=== PATIENT | female | born 1950 | race Caucasian/White ===

== ENCOUNTER 2016-03-27 20:50 | Inpatient (IN) | payer BC, OTHER ==
[~2016-03-27] VITALS: Ht 175.3 cm; Wt 80.7 kg
--- NOTE | ~2016-03-27 | D ---
[facility] [place] [address] DISCHARGE SUMMARY Name: SARAH BETH MELSISA Room #: 203-P [facility] IN M.R.#: [id number] Admission: 03/27/16 Attend Phys: Oskar Payne MD, Discharge: 03/29/16 Date of : 52 Report #: [id number] THIS REPORT FOR: //name// CC: Oskar Palacio MD DICTATED BY: Angelika ORTEGA HISTORY OF PRESENT ILLNESS: A very pleasant 65-year-old woman who was admitted with symptomatic atrial fibrillation. She had rates of 150s to 160s and IV diltiazem was initiated and she converted to sinus rhythm. She has since maintained sinus rhythm. She was monitored on the telemetry floor and had no recurrence of atrial fibrillation and will be discharged home in stable condition. Echocardiogram showed preserved LV function, without any wall motion abnormality, no significant valvular disease and no evidence of pulmonary hypertension. Thyroid studies are currently pending. Otherwise, laboratory data was unremarkable. She will be discharged to home in stable condition. DISCHARGE DIAGNOSES: 1. Paroxysmal atrial fibrillation, converted to sinus rhythm. 2. Osteoarthritis, maintained on low-dosed anti-inflammatory. DISCHARGE MEDICATIONS: She will maintain her home vitamin supplementation. She will initiate Toprol-XL 50 mg daily. She will take an extra p.r.n. break-through atrial fibrillation. She will take enteric-coated aspirin 325 mg daily. DISCHARGE INSTRUCTIONS: Maintain heart-healthy diet, activity as tolerated. She will return to the office in 2-3 weeks for a routine stress echocardiogram. She will notify the office with any questions or concerns. We will follow up with her thyroid studies at her routine followup visit and as mentioned, she will notify the office with any recurrent atrial dysrhythmias. Thank you for allowing us to participate in the care of this pleasant woman. <ELECTRONICALLY SIGNED> By: Oskar Payne MD, FACC 04/01/16 0936 0840 0931 Oskar Payne MD, FACC /nt
--- NOTE | ~2016-03-27 | H ---
[facility] [place] [address] HISTORY AND PHYSICAL Name: SARAH BETH MELISSA Room #: 203-P [facility] IN M.R.#: [id number] Admission: 03/27/16 Attend Phys: Oskar Payne MD, Discharge: 03/29/16 Date of : 52 Report #: [id number] THIS REPORT FOR: //name// CC: Oskar Palacio MD DATE OF SERVICE: 03/28/2016 HISTORY OF PRESENT ILLNESS: A 65-year-old female patient of Dr. Deyanira Palacio admitted to the emergency room with AFib and rapid ventricular response. The patient is a pleasant and active and young 65-year old. She states she may have had this occurred last summer for the first time, but has never been total she had AFib, never been treated for AFib. This occurred after having dinner last night. The EKG had the heart rate in the 150-160 range with nonspecific changes. She has spontaneously converted with IV Cardizem. She is in sinus rhythm. She feels well this morning. She was lightheaded with this but not syncopal. Her only medications were meloxicam, which she has not taken for 3 days. She does not have a history of hypertension or hypercholesterolemia. By age and being female, she would have a MARA score of 2. Denies chest pain or anginal complaints. Minimal alcohol intake and no tobacco. She does not have much in the way of any past medical history. She has no known drug allergies. PAST MEDICAL HISTORY: Positive only for a left knee replacement here a few months ago and some dehydration last summer. Palpitations, which are minimal. ALLERGIES: No known drug allergies. 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 Social alcohol. No tobacco. FAMILY HISTORY: Father did have premature coronary disease, but he was a smoker in his 60s, from heart failure. REVIEW OF SYSTEMS: Essentially negative except for stated above, this intermittent knee pain. PHYSICAL EXAMINATION: VITAL SIGNS: Currently, pulse is 60s-70s and regular and blood pressure 100/60. HEENT: Eyes reveal xanthelasmas. Pharynx is clear. NECK: Shows preserved upstrokes without JVD or bruits. LUNGS: Clear. CARDIAC: Regular rate and rhythm. S1 and S2, without murmur or gallop. ABDOMEN: Soft. No HSM or abdominal bruit. EXTREMITIES: Reveal no edema. Distal pulses were intact. [facility] [address] [place] [address] HISTORY AND PHYSICAL Name: SARAH BETH MELISSA Room #: [address] [place] [address] [place] [facility].#: [id number] Admission: 03/27/16 Attend Phys: Oskar Payne MD, Discharge: 03/29/16 Date of : 52 Report #: [id number] NEUROLOGICAL: Nonfocal. SKIN: Warm and dry without xanthoma or ulcer. MUSCULOSKELETAL: No gross joint deformity. ASSESSMENT: 1. Atrial fibrillation, rapid ventricular response. 2. History of knee replacement. RECOMMENDATIONS AND PLAN: Obtain echo Doppler. P.o. beta dewayne. We will give one shot of IV Lovenox. With no recurrence, I am not inclined to go on any long-term anticoagulation at this time, but we will need further outpatient evaluation. Structurally normal heart, we will add 50 mg of Toprol. I will have more to say at the discharge. I will wean off for Cardizem drip 50 p.o. Toprol, echo and try to send her home later today. <ELECTRONICALLY SIGNED> By: Oskar Payne MD, FACC 04/01/16 0936 0753 1839 Oskar Payne MD, FACC /nt
--- NOTE | ~2016-03-27 | 2DMMODE ---
[facility] [employer] [address] 2 D/M-MODE ECHOCARDIOGRAM Name: SHINSARAH BETH Room #: 203-P [facility] IN .R.#: [id number] Admission: 03/27/16 Attend Phys: Oskar Payne, Discharge: Date of : 52 Date of Service: 03/28/16911 Report #: [id number] THIS REPORT FOR: //name// Transthoracic Echocardiography Ordering physician: Jazzy Allen Referring physician: Deyanira Palacio Brianna Manager Qa: Azra Bailey RDCS Indications/History: Atrial fibrillation. BP: 86 / 52 HR: 62bpm Height: 69in Weight: 176.6lb Study data: M-mode, complete 2D, complete spectral Doppler, and color Doppler. Location: Bedside. [employer]. Image quality was good. 2D measurements Normal Normal LVID ED 49.2mm 36-57 IVS ED 11.2mm 6-11 LVID ES 31.2mm 23-40 LVPW ED 10.5mm 6-11 LA volume 30ml/m2 16-28 AoRoot diam 27.4mm 21-37 index ED LVOT diameter 20mm 18-23 Findings: Left ventricle: The cavity size was normal. Wall thickness was normal. Systolic function was normal. Wall motion was normal. Right ventricle: The cavity size was normal. Systolic function was normal. Right atrium: The atrium was mildly dilated. Left atrium: The atrium was normal in size. Volume index: 30ml/m2 (S). Aortic valve: Structurally normal valve. Doppler: There was no stenosis. No regurgitation. Peak velocity: 144.5cm/s (S). Mitral valve: Structurally normal valve. Doppler: There was no evidence for stenosis. Trivial regurgitation. Peak E-wave velocity: 76.1cm/s. Peak [facility] [address] [place] [address] 2 D/M-MODE ECHOCARDIOGRAM Name: SARAH BETH MELISSA Room #: 027-P [facility] IN [place]#: [id number] Admission: 03/27/16 Attend Phys: Oskar Payne, Discharge: Date of : 52 Date of Service: 03/28/16911 Report #: [id number] gradient: 2.3mm Hg (D). Peak A-wave velocity: 55.1cm/s. Tricuspid valve: Structurally normal valve. Doppler: There was no evidence for stenosis. Trivial regurgitation. Regurgitant peak velocity: 220cm/s. Peak RV-RA gradient: 19mm Hg (S). Pulmonic valve: Structurally normal valve. Doppler: There was no evidence for stenosis. No regurgitation. Pericardium: There was no pericardial effusion. Aorta: Aortic root: The aortic root was normal in size. Pulmonary artery: Systolic pressure was estimated to be 29mm Hg. Diastolic function: Normal diastolic function. Systemic veins: Inferior vena cava: The vessel was normal in size; the respirophasic diameter changes were blunted (< 50%). Conclusions 1. Left ventricle: Systolic function was normal. Wall motion was normal. 2. Left atrium: The atrium was normal in size. 3. Aortic valve: No regurgitation. 4. Tricuspid valve: Trivial regurgitation. 5. Pericardium, extracardiac: There was no pericardial effusion. 6. Pulmonary arteries: Systolic pressure was estimated to be 29mm Hg. <ELECTRONICALLY SIGNED> By: Oskar Payne MD, [facility] 03/28/16 2252 2252 Oskar Payne MD, FACC /hammad
--- NOTE | ~2016-03-27 | EKG ---
[place] [address] [place] [address] ELECTROCARDIOGRAM REPORT Name: SARAH BETH MELISSA Room #: 203-[facility] IN M.R.#: [id number] Admission: 03/27/16 Attend Phys: Oskar Payne MD, Discharge: 03/29/16 Date of : 52 Report #: [id number] THIS REPORT FOR: //name// [facility] ED Test Date: 2016-03-27 Test Time: 20:53:55 Pat Name: SARAH BETH MELISSA Department: Room: [facility] Gender: F Fast Food Server: HARINI : 1950 Requested By: Trini Downing Order Number: [id number] MD: Dell Bhatti Measurements Intervals [place] Rate: 148 P: SC: QRS: 76 QRSD: 91 T: 263 QT: 263 QTc: 413 Interpretive Statements Atrial fibrillation with rapid V-rate Repolarization abnormality, prob rate related Baseline wander in lead(s) V3 No previous ECG available for comparison Electronically Signed On 03-29-2016 14:11:20 HEALTH CARE ADMINISTRATOR by Dell Bhatti [email or web address] <ELECTRONICALLY SIGNED> By: Dell Bhatti MD, [facility] 03/29/16 1411 52 52 Dell Bhatti MD, [facility] /EPI
--- NOTE | ~2016-03-27 | EKG ---
[facility] [address] [place] [address] ELECTROCARDIOGRAM REPORT Name: SARAH BETH MELISSA Room #: 203-P [facility] IN M.R.#: [id number] Admission: 03/27/16 Attend Phys: Oskar Payne MD, Discharge: 03/29/16 Date of : 52 Report #: [id number] THIS REPORT FOR: //name// [facility] Test Date: 2016-03-28 Test Time: 07:56:49 Pat Name: SARAH BETH MELISSA Department: Room: [facility] Gender: F Commander Internal Affairs: TAM : 1950 Requested By: Trini Downing Order Number: [id number] MD: Dell Bhatti Measurements Intervals [place] Rate: 64 P: 72 UT: 144 QRS: 76 QRSD: 100 T: 88 QT: 463 QTc: 478 Interpretive Statements Sinus rhythm Abnrm T, consider ischemia, anterolateral lds No previous ECG available for comparison Electronically Signed On 03-29-2016 14:15:49 RETAIL SUPERVISOR by Dell Bhatti [email or web address] <ELECTRONICALLY SIGNED> By: Dell Bhatti MD, [facility] 03/29/16 1415 0756 0756 Dell Bhatti MD, [facility] /EPI
[~2016-03-27 20:50] MED LIST: MACROBID 100 M100 M2 PO; NORCO 5-325 TA1 EACH PO
[2016-03-27 20:52] VITALS: BP 188/104
[2016-03-27] MEDS ORDERED: MOBIC15 MG PO (20:55)
[2016-03-27 21:24] LABS: ABSOLUTE NEUTROPHILS 7.5 thou/uL (1.4-8.2); BASOPHILS 0.8 % (0.0-2.0); EOSINOPHILS 1.9 % (0.0-3.0); HEMATOCRIT 42.4 % (37.0-47.0); HEMOGLOBIN 14.6 gm/dL (12.0-15.0); MCH 31.1 pg (26.0-34.0); MCHC 34.4 % (28.0-37.0); MCV 90.3 fL (80.0-100.0); MONOCYTES 9.4 % (1.0-8.0); PLATELET COUNT 283 thou/uL (150-400); POLYS 70.9 % (36.0-66.0); RDW 12.3 % (10.5-14.5); WBC 10.6 thou/uL (4.0-11.0)
[2016-03-27 21:26] LABS: MANUAL DIFF NO
[2016-03-27 21:29] LABS: ANION GAP 12 mmol/L (7-16); BUN 8 mg/dL (7-18); CALCIUM 9.7 mg/dL (8.5-10.1); CHLORIDE 101 mmol/L (98-107); CO2 28 mmol/L (21-32); CREATININE 0.8 mg/dL (0.6-1.3); GLUCOSE 117 mg/dL (70-99); POTASSIUM 3.2 mmol/L (3.5-5.1); SODIUM 141 mmol/L (136-145)
[2016-03-27 21:38] LABS: MAGNESIUM 1.8 mg/dL (1.8-2.4); TROPONIN-I < 0.04 ng/mL (<0.04-0.07)
[2016-03-28] VITALS (7 sets, daily range): BP systolic 86–147; BP diastolic 52–82
[2016-03-28 00:13] LABS: APTT 25.2 Seconds (24.5-32.8); PROTIME 10.5 Seconds (9.3-11.4)
[2016-03-28] MEDS ORDERED: VITAMIN D2000 UNIT PO (02:16)
[2016-03-28] MEDS ORDERED: CALCIUM 600 +1 EAC1 PO (02:16)
[2016-03-28] MEDS ORDERED: CENTURY TABLET1 EACH PO (02:17)
[2016-03-28] MEDS ORDERED: VITAMINC500 PO (02:18)
[2016-03-28] MEDS ORDERED: TYLENOL325 MG PO (02:20)
[2016-03-29 04:18] VITALS: BP 118/71
[2016-03-29 07:15] VITALS: BP 118/71
[2016-03-29 07:50] VITALS: BP 128/82
[2016-03-29] MEDS ORDERED: TOPROL XL100 MG PO (09:38)
[2016-03-29] MEDS ORDERED: ASA5UEC PO (09:40)
== END 2016-03-29 10:09 | disposition home or self-care (01) | DRG 310 ==
LOC: ER 20:50 → EROBS 21:49 → 2N 03-28 01:28
PROVIDERS: Emergency Medicine
DX: I49.8 Other specified cardiac arrhythmias (principal); I48.0 Paroxysmal atrial fibrillation; M19.90 Unspecified osteoarthritis, unspecified site; Z96.652 Presence of left artificial knee joint; Z82.49 Family history of ischemic heart disease and other diseases of the circulatory system; Z81.2 Family history of tobacco abuse and dependence
CPT/HCPCS: 10081

== ENCOUNTER → 2018-07-19 | Outpatient (CLI) | payer OTHER ==
[~2018-07-19] MED LIST changes: +ASA5UEC PO; +CALCIUM 600 +1 EAC1 PO; +CENTURY TABLET1 EACH PO; +MOBIC15 MG PO; +TOPROL XL100 MG PO; +TYLENOL325 MG PO; +VITAMIN D2000 UNIT PO; +VITAMINC500 PO
== END ==
LOC: CAT 11:34
DX: Z13.6 Encounter for screening for cardiovascular disorders (principal); I25.10 Atherosclerotic heart disease of native coronary artery without angina pectoris; E78.00 Pure hypercholesterolemia, unspecified

== ENCOUNTER → 2019-04-17 | Outpatient (CLI) | payer OTHER | LOC: SJCVC 15:30 → SJCVCIMAG 15:30 | DX: I08.1 Rheumatic disorders of both mitral and tricuspid valves (principal); R94.31 Abnormal electrocardiogram [ECG] [EKG]; I10 Essential (primary) hypertension; E78.00 Pure hypercholesterolemia, unspecified; I48.0 Paroxysmal atrial fibrillation; M19.90 Unspecified osteoarthritis, unspecified site; Z96.652 Presence of left artificial knee joint; Z79.82 Long term (current) use of aspirin; Z79.899 Other long term (current) drug therapy ==

== ENCOUNTER → 2020-05-27 | Outpatient (CLI) | payer OTHER | LOC: SJCVCIMAG 05-08 10:22 | PROVIDERS: ATTEND Internal Medicine Cardiovascular Disease | DX: I08.1 Rheumatic disorders of both mitral and tricuspid valves (principal); I48.0 Paroxysmal atrial fibrillation; I10 Essential (primary) hypertension; E78.5 Hyperlipidemia, unspecified; Z79.899 Other long term (current) drug therapy ==

== ENCOUNTER → 2021-04-24 | Outpatient (CLI) | payer OTHER | LOC: SJCVC 15:18 | PROVIDERS: ATTEND Internal Medicine Cardiovascular Disease | DX: R94.31 Abnormal electrocardiogram [ECG] [EKG] (principal); I48.0 Paroxysmal atrial fibrillation; I10 Essential (primary) hypertension; E78.00 Pure hypercholesterolemia, unspecified; I34.0 Nonrheumatic mitral (valve) insufficiency; E78.5 Hyperlipidemia, unspecified; Z72.89 Other problems related to lifestyle; Z79.82 Long term (current) use of aspirin; Z79.899 Other long term (current) drug therapy; Z82.49 Family history of ischemic heart disease and other diseases of the circulatory system ==